=== PATIENT | male | born 1985 | race Caucasian/White ===

== ENCOUNTER 2017-01-27 10:16 | Emergency (ER) | payer BC ==
[~2017-01-27] VITALS: Ht 188 cm; Wt 79.4 kg
[~2017-01-27 10:16] MED LIST: ALBU8.5H2 INH; ATAZ200C PO; EMTR1TAB6 PO; RITO100T PO
[2017-01-27] MEDS ORDERED: LIDOCAINE 2% 20 ML MDV ONE (11:29)
[2017-01-27] MEDS ORDERED: LIDOCAINE 0.5% HCL 50 ML VIAL IJ ONE (11:30)
[2017-01-27] MEDS ORDERED: POVIDONE-IODINE OINT 28.4 GM TUBE TP ONE (11:30)
[2017-01-27 11:50] VITALS: BP 118/67
--- NOTE | 2017-01-27 11:51 | NUR ---
Patient discharged to home in stable condition. Written and verbal after care instructions given. Patient verbalizes understanding of instruction.
== END 2017-01-27 11:52 | disposition home or self-care (01) ==
LOC: ER 10:18
DX: S61.011A Laceration without foreign body of right thumb without damage to nail, initial encounter (principal); J45.909 Unspecified asthma, uncomplicated; W26.0XXA Contact with knife, initial encounter; Y93.89 Activity, other specified; Y92.89 Other specified places as the place of occurrence of the external cause; Y99.8 Other external cause status
CPT/HCPCS: 12001; 99283; A4606; A6402 ×2; A6403; J3490; Z7610